=== PATIENT | male | born 2000 | race African-American/Black ===

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

== ENCOUNTER 2021-04-17 14:37 | Emergency (ER) | payer OTHER | END 2021-04-17 15:35 | disposition home or self-care (01) | LOC: MADERS 14:37 | DX: H72.92 Unspecified perforation of tympanic membrane, left ear (principal) | CPT/HCPCS: 99282 ==

== ENCOUNTER 2021-08-05 08:12 | Emergency (ER) | payer OTHER | END 2021-08-05 09:10 | disposition home or self-care (01) | LOC: MADERS 08:12 | DX: J03.90 Acute tonsillitis, unspecified (principal) | CPT/HCPCS: 87081; 87430; 99283 ==